=== PATIENT | male | born 1965 | race American Indian/Alaskan Native ===

== ENCOUNTER 2022-04-10 10:20 | Inpatient (IN) | payer SELFPAY ==
--- NOTE | 2022-04-10 11:06 | Emergency Department Report ---
Blank Doc - Documentation Documentation: 56-year-old male that presents with abdominal pain with radiation to flank times several days. 1- This is a initial triage assessment/medical screening only. Full assessment and work-up will be completed once the patient is in proper hospital gown, ED bed and in a private room setting. This initial assessment/diagnostic orders/clinical plan/ treatment(s) is/are subject to change based on pt's health status, clinical progression and re-assessment by fellow clinical providers in the ED. Further treatment and workup at subsequent clinical providers discretion. Patient/guardians urged not to elope from ED as their condition may be serious if not clinically assessed and managed. 2-labs 3-UA The patient was evaluated in the emergency department for symptoms described in the history of present illness. He/she was evaluated in the context of the global COVID-19 pandemic, which necessitated consideration that the patient might be at risk for infection with the virus that causes COVID-19. Institutional protocols and algorithms that pertain to the evaluation of patie nts at risk for COVID-19 are in a state of rapid change based on information released by regulatory bodies including the CDC and federal and state organizations. These policies and algorithms were followed during the patient's care in the emergency department. Please note that these policies, procedures and recommendations changed on a rapid basis.
[2022-04-10 12:40] LABS: Basophils % (Auto) 0.4 % (0.0-1.8); Eosinophils % (Auto) 0.1 % (0.0-4.3); Hematocrit 43.8 % (35.5-45.6); Hemoglobin 14.5 gm/dl (11.8-15.2); Lymphocytes # (Auto) 1.1 K/mm3 (1.2-5.4); Lymphocytes % (Auto) 11.8 % (13.4-35.0); Mean Corpuscular HGB Conc 33 % (32-34); Mean Corpuscular Volume 96 fl (84-94); Monocytes # (Auto) 1.1 K/mm3 (0.0-0.8); Platelet Count 385 K/mm3 (140-440); Red Blood Count 4.55 M/mm3 (3.65-5.03); Red Cell Distribution Width 13.2 % (13.2-15.2)
[2022-04-10 12:47] LABS: Alanine Aminotransferase 21 units/L (7-56); Albumin 3.5 g/dL (3.9-5); Blood Urea Nitrogen 11 mg/dL (9-20); Calcium 9.1 mg/dL (8.4-10.2); Hemolysis Index 3
[2022-04-10 12:48] LABS: BUN/Creatinine Ratio 16
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
[2022-04-10] MEDS ORDERED: MORPHINE 4 MG/1 ML INJ IV ONE (14:00)
[2022-04-10] MEDS ORDERED: PANTOPRAZOLE 40 MG INJ IV ONE (14:00)
[2022-04-10] MEDS ORDERED: ONDANSETRON 4 MG/2 ML INJ IV ONE (14:00)
[2022-04-10 14:38] LABS: INR 0.91 (0.87-1.13)
[2022-04-10 14:39] LABS: Partial Thromboplastin Time 49.8 Sec. (24.2-36.6)
--- NOTE | 2022-04-10 14:47 | XRay Report ---
CHEST 1 VIEW 04/10/2022 1:30 PM INDICATION / CLINICAL INFORMATION: LUQ pain. COMPARISON: None available. FINDINGS: SUPPORT DEVICES: None. HEART / MEDIASTINUM: Median sternotomy. LUNGS / PLEURA: No significant pulmonary or pleural abnormality. No pneumothorax. ADDITIONAL FINDINGS: No significant additional findings. IMPRESSION: 1. No acute findings. Signer Name: Maco Pack MD Signed: 04/10/2022 2:43 PM Workstation Name: [id number]
--- NOTE | 2022-04-10 16:43 | Cat Scan Report ---
CTA CHEST WITH CONTRAST INDICATION / CLINICAL INFORMATION: chest pain with elevated d-dimer. TECHNIQUE: Axial CT images were obtained through the chest after injection of IV contrast. 3 plane ND P and/or 3D reconstructions were produced. All CT scans at this location are performed using CT dose reduction for ALARA by means of automated exposure control. COMPARISON: None available. FINDINGS: PULMONARY EMBOLUS: None. Septic pulmonary emboli detailed below. THORACIC AORTA: No significant abnormality. HEART: No significant abnormality. CORONARY ARTERY CALCIFICATION: Present -- Mild. MEDIASTINUM / TAUL: Diffuse esophageal wall thickening. PLEURA: No pleural effusion. No pneumothorax. LUNGS: Peripheral based areas of nodular consolidation scattered throughout both lungs with feeding v essels. Upper lobe emphysema. ADDITIONAL FINDINGS: Multiple borderline enlarged axillary lymph nodes. Median sternotomy. UPPER ABDOMEN: Please see separately dictated CT abdomen and pelvis. SKELETAL STRUCTURES: No significant osseous abnormality. IMPRESSION: 1. Bilateral septic pulmonary emboli. 2. Diffuse esophageal wall thickening, which may be related to esophagitis. Signer Name: Maco Pack MD Signed: 04/10/2022 4:38 PM Workstation Name: [email or web address]
--- NOTE | 2022-04-10 16:51 | Cat Scan Report ---
CT ABDOMEN AND PELVIS WITH CONTRAST INDICATION / CLINICAL INFORMATION: chest pain with elevated d-dimer. Abdominal pain with concern for pancreatitis TECHNIQUE: Axial CT images were obtained through the abdomen and pelvis after IV contrast. All CT sc ans at this location are performed using CT dose reduction for ALARA by means of automated exposure c ontrol. COMPARISON: None available. FINDINGS: LOWER CHEST: Please see separately dictated CT chest LIVER: No significant abnormality. GALLBLADDER: No significant abnormality. BILE DUCTS: No significant abnormality. PANCREAS: No significant abnormality. SPLEEN: No significant abnormality. ADRENALS: No significant abnormality. RIGHT KIDNEY / URETER: No significant abnormality. LEFT KIDNEY / URETER: No significant abnormality. STOMACH / SMALL BOWEL: No significant abnormality. COLON: No significant abnormality. APPENDIX: Not visualized. PERITONEUM: No free fluid. No free air. No fluid collection. LYMPH NODES: Prominent but nonenlarged inguinal lymph nodes. AORTA / ARTERIES: No significant abnormality. IVC / VEINS: No significant abnormality. URINARY BLADDER: Bladder wall thickening. REPRODUCTIVE ORGANS: No significant abnormality. ADDITIONAL FINDINGS: None. SKELETAL SYSTEM: Chronic deformity of the left femur and right iliac bone. IMPRESSION: 1. Mild urinary bladder wall thickening, which can be seen with cystitis. 2. No evidence of pancreatitis. Signer Name: Maco Pack MD Signed: 04/10/2022 4:47 PM Workstation Name: [id number]
[2022-04-10 16:54] LABS: Mucus,Urine FEW /HPF
[2022-04-10 17:02] LABS: Color,Urine Yellow (Yellow)
[2022-04-10] MEDS ORDERED: HYDROmorphone 1 MG/1 ML INJ IV ONE (17:49)
--- NOTE | 2022-04-10 21:48 | History and Physical Report ---
History of Present Illness Date of examination: 04/10/22 Date of admission: 04/10/2022 Chief complaint: Left-sided chest pain History of present illness: 56-year-old -[place] male with history of hypertension comes in for left infra axillary chest pain going on for the last 2 weeks worsens with deep inspiration. Pain is about 8 on a scale of 1-10 and intermittent in nature. No shortness of breath no diaphoresis. No fever or chills. Patient has a complic ated history of osteomyelitis 20 years ago with bone irrigation antibiotic beads and left femur resection of 2 inches with Reunion. But no further complications since 20 years. No fever or chills today. Shortness of breath on exertion present. - Past Medical History --HIV: Yes Complicated history of osteomyelitis - Surgical History --L femur bone irrigation and bone resection for osteomyelitis --Patient states that he is 2 inches short on the left lower extremity -Family history --Htn -Social history --smokes about 1/3 pack a day Review of Systems ROS: Constitutional no weight loss or weight gain no fever or chills HEENT no sore throat no post nasal drip no diplopia Neck no neck stiffness no lymph gland enlargement Chest and lungs left-sided chest pain more on inspiration CVS no chest pain no diaphoresis no palpitations GI no nausea no vomiting no diarrhea Genitourinary system no dysuria no flank pain Musculoskeletal system no muscle pains no joint pains STRAW [employer] no syncope no seizures Skin no rash no itching Psychiatric no depression no homicidal or suicidal tendencies Hematologic no lymphedema or bruising Endocrine no polydipsia no polyuria no cold intolerance no heat intolerance Medications and Allergies Allergies Allergy/AdvReac Type Severity Reaction Status Date / Time ciprofloxacin [From Cipro] Allergy Hives Verified 04/10/22 10:32 Exam - Constitutional Vitals: Temp Pulse Resp BP Pulse Ox 98.3 F 69 12 139/80 98 04/10/22 14:14 04/10/22 16:20 04/10/22 16:20 04/10/22 21:15 04/10/22 21:15 General appearance: Present: no acute distress, well-nourished - EENT Eyes: Present: PERRL ENT: hearing intact, clear oral mucosa - Neck Neck: Present: supple, normal ROM - Respiratory Respiratory effort: normal Respiratory: bilateral: CTA - Cardiovascular Heart rate: 78 Rhythm: regular Heart Sounds: Present: S1 & S2. Absent: rub, click - Extremities Extremities: pulses symmetrical, No edema Peripheral Pulses: within normal limits - Abdominal General gastrointestinal: Present: soft, non-tender, non-distended, normal bowel sounds Male genitourinary: Present: normal - Integumentary Integumentary: Present: clear, warm, dry - Musculoskeletal Musculoskeletal: gait normal, strength equal bilaterally - Psychiatric Psychiatric: appropriate mood/affect, intact judgment & insight - Neurologic Neurologic: CNII-XII intact, moves all extremities - Allied Health Allied health notes reviewed: nursing, case management HEART Score - HEART Score History: Slightly suspicious Age: 45-65 Risk factors: 1-2 risk factors Troponin: Troponin T < 0.010 ng/mL (0.00-0.029) 04/10/22 14:06 Troponin: < normal limit - Critical Actions Critical Actions: 0-3 pts:0.9-1.7%risk of adverse cardiac event.Candidate for discharge Results - Labs CBC & Chem 7: 04/10/22 11:09 04/10/22 11:09 Labs: Laboratory Last Values WBC 9.5 K/mm3 (4.5-11.0) 04/10/22 11:09 RBC 4.55 M/mm3 (3.65-5.03) 04/10/22 11:09 Hgb 14.5 gm/dl (11.8-15.2) 04/10/22 11:09 Hct 43.8 % (35.5-45.6) 04/10/22 11:09 MCV 96 fl (84-94) H 04/10/22 11:09 MCH 32 pg (28-32) 04/10/22 11:09 MCHC 33 % (32-34) 04/10/22 11:09 RDW 13.2 % (13.2-15.2) 04/10/22 11:09 Plt Count 385 K/mm3 (140-440) 04/10/22 11:09 Lymph % (Auto) 11.8 % (13.4-35.0) L 04/10/22 11:09 [place] % (Auto) 11.0 % (0.0-7.3) H 04/10/22 11:09 Eos % (Auto) 0.1 % (0.0-4.3) 04/10/22 11:09 Baso % (Auto) 0.4 % (0.0-1.8) 04/10/22 11:09 Lymph # (Auto) 1.1 K/mm3 (1.2-5.4) L 04/10/22 11:09 [place] # (Auto) 1.1 K/mm3 (0.0-0.8) H 04/10/22 11:09 Eos # (Auto) 0.0 K/mm3 (0.0-0.4) 04/10/22 11:09 Baso # (Auto) 0.0 K/mm3 (0.0-0.1) 04/10/22 11:09 Seg Neutrophils % 76.7 % (40.0-70.0) H 04/10/22 11:09 Seg Neutrophils # 7.3 K/mm3 (1.8-7.7) 04/10/22 11:09 PT 13.2 Sec. (12.2-14.9) 04/10/22 14:06 INR 0.91 (0.87-1.13) 04/10/22 14:06 APTT 49.8 Sec. (24.2-36.6) H 04/10/22 14:06 D-Dimer 1147.05 ng/mlDDU (0-234) H 04/10/22 14:06 Sodium 136 mmol/L (137-145) L 04/10/22 11:09 Potassium 4.6 mmol/L (3.6-5.0) 04/10/22 11:09 Chloride 97.5 mmol/L (98-107) L 04/10/22 11:09 Carbon Dioxide 30 mmol/L (22-30) 04/10/22 11:09 Anion Gap 13 mmol/L 04/10/22 11:09 BUN 11 mg/dL (9-20) 04/10/22 11:09 Creatinine 0.7 mg/dL (0.8-1.3) L 04/10/22 11:09 Estimated GFR > 60 ml/min 04/10/22 11:09 BUN/Creatinine Ratio 16 % 04/10/22 11:09 Glucose 106 mg/dL (75-100) H 04/10/22 11:09 Calcium 9.1 mg/dL (8.4-10.2) 04/10/22 11:09 Total Bilirubin 0.70 mg/dL (0.1-1.2) 04/10/22 11:09 AST 28 units/L (5-40) 04/10/22 11:09 ALT 21 units/L (7-56) 04/10/22 11:09 Alkaline Phosphatase 112 units/L (35-129) 04/10/22 11:09 Troponin T < 0.010 ng/mL (0.00-0.029) 04/10/22 14:06 NT-Pro-B Natriuret Pep 160.6 pg/mL (0-900) 04/10/22 14:06 Total Protein 7.8 g/dL (6.3-8.2) 04/10/22 11:09 Albumin 3.5 g/dL (3.9-5) L 04/10/22 11:09 Albumin/Globulin Ratio 0.8 % 04/10/22 11:09 Amylase 47 units/L (27-131) 04/10/22 Unknown Lipase 16 units/L (13-60) 04/10/22 11:09 Urine Color Yellow (Yellow) 04/10/22 15:29 Urine Turbidity Slightly cloudy (Clear) 04/10/22 15:29 Specific [place] (Man) 1.010 (1.003-1.030) 04/10/22 15:29 Ur Protein (Man) 1+ mg/dL (Negative) 04/10/22 15:29 Ur Ketones (Man) Negative (Negative) 04/10/22 15:29 Urine Bilirubin (Man) Negative (Negative) 04/10/22 15:29 Urine WBC (Auto) 2.0 /HPF (0.0-6.0) 04/10/22 15:29 Urine RBC (Auto) 1.0 /HPF (0.0-6.0) 04/10/22 15:29 Urine RBC (Manual) Negative (Negative) 04/10/22 15:29 Urine Mucus Few /HPF 04/10/22 15:29 Short CBC 04/10/22 04/11/22 Range/Units 11:09 06:13 WBC 9.5 12.8 H (4.5-11.0) K/mm3 Hgb 14.5 14.0 (11.8-15.2) gm/dl Hct 43.8 41.9 (35.5-45.6) % Plt Count 385 356 (140-440) K/mm3 BMP 04/10/22 11:09 Sodium 136 L Potassium 4.6 Chloride 97.5 L Carbon Dioxide 30 BUN 11 Creatinine 0.7 L Glucose 106 H Calcium 9.1 Cardiac Enzymes 04/10/22 Range/Units 14:06 Troponin T < 0.010 (0.00-0.029) ng/mL Liver Function 04/10/22 Range/Units 11:09 Total Bilirubin 0.70 (0.1-1.2) mg/dL AST 28 (5-40) units/L ALT 21 (7-56) units/L Alkaline Phosphatase 112 (35-129) units/L Albumin 3.5 L (3.9-5) g/dL Urine 04/10/22 Range/Units 15:29 Urine Color Yellow (Yellow) - Imaging and Cardiology EKG: report reviewed (Sinus rhythm no acute ST-T wave changes) Imaging and Cardiology: CT angiogram Bilateral septic pulmonary emboli Diffuse distributive orthopedic which may be related to esophagitis Abdomen and pelvis CAT scan Mild urinary bladder wall thickening which can be seen with cystitis No evidence of pancreatitis Chest x-ray No acute findings Assessment and Plan Advance Directives: Yes (Full code) VTE prophylaxis?: Chemical Plan of care discussed with patient/family: Yes - Patient Problems (1) SIRS (systemic inflammatory response syndrome) Current Visit: Yes Status: Acute Plan to address problem: Elevated inflammation markers like D-dimer Septic emboli (2) Acute pulmonary embolism Current Visit: Yes Status: Acute Qualifiers: Pulmonary embolism type: septic Plan to address problem: Patient has septic emboli as per radiology Patient initiated on IV cefepime and IV vancomycin Patient has complicated history of osteomyelitis 20 years ago May not be the causation factor No focus of infection found Echocardiogram to rule out bacterial endocarditis LUNA if necessary ID consult and cardiology consult requested Patient also initiated on IV heparin as per protocol with standard intensity (3) Septic pulmonary embolism Current Visit: Yes Status: Acute Qualifiers: Chronicity: acute Acute cor pulmonale presence: without acute cor pulmonale Qualified Code(s): I26.90 - Septic pulmonary embolism without acute cor pulmo nale Plan to address problem: Etiology unclear Patient has complicated history of osteomyelitis 20 years ago with a bone irrigation and antibiotic beads and femur resection of 2 inches secondary to osteomyelitis. Left femur. Echocardiogram for possible bacterial. Endocarditis LUNA if necessary Patient initiated on IV cefepime and vancomycin ID consult and cardiology consult requested (4) Hypertension Current Visit: Yes Status: Chronic Qualifiers: Hypertension type: primary hypertension Qualified Code(s): I10 - Essential (primary) hypertension Plan to address problem: History of hypertension Not on any medications Will trend the blood pressure and where she is on losartan if necessary (5) Pleuritis Current Visit: Yes Status: Acute Plan to address problem: Left-sided chest pain probably secondary to pulmonary infarction Serial troponins Ischemic cardiac injury unlikely (6) HIV disease Current Visit: Yes Status: Chronic Plan to address problem: Not on any antiretrovirals (7) DVT prophylaxis Current Visit: Yes Status: Acute Plan to address problem: Patient on IV heparin and GI prophylaxis (8) Advance care planning Current Visit: Yes Status: Acute Plan to address problem: Disease education conducted, care plan discussed, diagnosis discussed and prognosis discussed. Patient acknowledged understanding with care plan. +30 minutes.
[2022-04-10] MEDS ORDERED: HYDROmorphone 0.5 MG/0.5 ML INJ IV PRN (21:52)
[2022-04-10] MEDS ORDERED: ONDANSETRON 4 MG/2 ML INJ IV PRN (21:52)
[2022-04-10] MEDS ORDERED: METOCLOPRAMIDE 10 MG/2 ML INJ IV PRN (21:52)
[2022-04-10] MEDS ORDERED: ACETAMINOPHEN 325 MG TAB PO PRN (21:52)
[2022-04-10] MEDS ORDERED: HEPARIN 10,000 UNITS/10 ML VIAL IV PRN (22:05)
[2022-04-10] MEDS: FAMOTIDINE 20 MG/2 ML INJ IV SCH (22:26)
[2022-04-10] MEDS: HEPARIN/ 0.45% NACL DRIP 25,000 UNIT/500 ML BAG IV SCH (22:57)
[2022-04-10] MEDS: CEFEPIME/NS 2 GM/100 ML 2 GM/100 ML BAG IV SCH (22:57)
[2022-04-10] MEDS ORDERED: VANCOMYCIN PHARMACY TO DOSE IV SCH (23:00)
[2022-04-10] MEDS ORDERED: HEPARIN/ 0.45% NACL DRIP 25,000 UNIT/500 ML BAG IV SCH (23:00)
[2022-04-10] MEDS: MORPHINE 2 MG/1 ML INJ IV PRN (23:15)
[2022-04-10] MEDS ORDERED: VANCOMYCIN 1,500 MG in SODIUM CHLORIDE 0.9% 500 ML 500 ML IV ONE (23:30)
[2022-04-11 06:43] LABS: Basophils # (Auto) 0.1 K/mm3 (0.0-0.1); Basophils % (Auto) 0.4 % (0.0-1.8); Hematocrit 41.9 % (35.5-45.6); Lymphocytes # (Auto) 0.8 K/mm3 (1.2-5.4); Lymphocytes % (Auto) 6.5 % (13.4-35.0); Mean Corpuscular HGB Conc 33 % (32-34); Mean Corpuscular Volume 95 fl (84-94); Monocytes % (Auto) 7.9 % (0.0-7.3); Platelet Count 356 K/mm3 (140-440); Red Blood Count 4.43 M/mm3 (3.65-5.03); Red Cell Distribution Width 13.2 % (13.2-15.2)
[2022-04-11 06:56] LABS: Alanine Aminotransferase 17 units/L (7-56); Albumin 2.9 g/dL (3.9-5); Blood Urea Nitrogen 12 mg/dL (9-20); Calcium 8.7 mg/dL (8.4-10.2); Hemolysis Index 32
[2022-04-11 07:04] LABS: BUN/Creatinine Ratio 20
--- NOTE | 2022-04-11 08:36 | Progress Note ---
Assessment and Plan Assessment and plan: #Acute pulmonary emboli #suspected septic emboli #SIRS (systemic inflammatory response syndrome) without organ dysfunction -septic emboli seen on CT of the chest -TTE noted, no vegetations, clots seen; patient may require LUNA -will continue vancomycin, cefepime and heparin drip -ID consulted ordered, assistance appreciated #Elevated D-dimer -likely secondary to PEs #Hypertension -History of hypertension, does not take medications at home -will continue to monitor to see if antihypertensives may be needed prior to discharge -goal SBP <160 while inpatient #HIV disease -Not on any antiretrovirals -will need ID follow up outpatient #Tobacco abuse #Smoking cessation -patient smokes about 4 cigarettes per day -Smoking cessation counseling, supportive care, behavior change counseling, +15 minutes. -Patient declines nicotine patch at this time #Moderate protein malnutrition -albumin 2.9 -nutrition consult #Advanced care planning -Disease education conducted, care plan discussed, diagnosis discussed and prognosis discussed. Patient acknowledged understanding with care plan. +30 minutes. History Interval history: No acute events overnight. Patient reports improvement in shortness of breath and is not experiencing pain at this time. We discussed current care plan and pending ID consultation. Patient agreeable. Hospitalist Physical - Physical exam Narrative exam: GENERAL: Thin male. In no acute distress. HEENT: Normocephalic. Atraumatic. NECK: Supple. CHEST/LUNGS: CTAB on room air HEART/CARDIOVASCULAR: RRR. No murmur, rubs or gallops appreciated. ABDOMEN: +BS. NT/ND. SKIN: No rashes noted. NEURO: No focal motor deficit. Follows all commands. MUSCULOSKELETAL: No joint effusion EXTREMITIES: No cyanosis, clubbing or edema. PSYCH: Cooperative. - Constitutional Vitals: Temp Pulse Resp BP Pulse Ox 98 F 66 20 177/90 98 04/11/22 03:15 04/11/22 03:15 04/11/22 03:15 04/11/22 03:15 04/11/22 03:21 General appearance: Present: no acute distress, well-nourished HEART Score - HEART Score Age: 45-65 Risk factors: 1-2 risk factors Troponin: Troponin T < 0.010 ng/mL (0.00-0.029) 04/10/22 14:06 Troponin: < normal limit - Critical Actions Critical Actions: 0-3 pts:0.9-1.7%risk of adverse cardiac event.Candidate for discharge Results - Labs CBC & Chem 7: 04/11/22 06:13 04/11/22 06:13 Labs: Laboratory Last Values WBC 12.8 K/mm3 (4.5-11.0) H 04/11/22 06:13 RBC 4.43 M/mm3 (3.65-5.03) 04/11/22 06:13 Hgb 14.0 gm/dl (11.8-15.2) 04/11/22 06:13 Hct 41.9 % (35.5-45.6) 04/11/22 06:13 MCV 95 fl (84-94) H 04/11/22 06:13 MCH 32 pg (28-32) 04/11/22 06:13 MCHC 33 % (32-34) 04/11/22 06:13 RDW 13.2 % (13.2-15.2) 04/11/22 06:13 Plt Count 356 K/mm3 (140-440) 04/11/22 06:13 Lymph % (Auto) 6.5 % (13.4-35.0) L 04/11/22 06:13 [place] % (Auto) 7.9 % (0.0-7.3) H 04/11/22 06:13 Eos % (Auto) 0.0 % (0.0-4.3) 04/11/22 06:13 Baso % (Auto) 0.4 % (0.0-1.8) 04/11/22 06:13 Lymph # (Auto) 0.8 K/mm3 (1.2-5.4) L 04/11/22 06:13 [place] # (Auto) 1.0 K/mm3 (0.0-0.8) H 04/11/22 06:13 Eos # (Auto) 0.0 K/mm3 (0.0-0.4) 04/11/22 06:13 Baso # (Auto) 0.1 K/mm3 (0.0-0.1) 04/11/22 06:13 Seg Neutrophils % 85.2 % (40.0-70.0) H 04/11/22 06:13 Seg Neutrophils # 10.9 K/mm3 (1.8-7.7) H 04/11/22 06:13 PT 13.2 Sec. (12.2-14.9) 04/10/22 14:06 INR 0.91 (0.87-1.13) 04/10/22 14:06 APTT 49.8 Sec. (24.2-36.6) H 04/10/22 14:06 D-Dimer 1147.05 ng/mlDDU (0-234) H 04/10/22 14:06 Heparin Anti-Xa Level < 0.10 U.I./ml (0.3-0.7) L 04/11/22 06:13 Sodium 130 mmol/L (137-145) L 04/11/22 06:13 Potassium 4.7 mmol/L (3.6-5.0) 04/11/22 06:13 Chloride 96.6 mmol/L (98-107) L 04/11/22 06:13 Carbon Dioxide 26 mmol/L (22-30) 04/11/22 06:13 Anion Gap 12 mmol/L 04/11/22 06:13 BUN 12 mg/dL (9-20) 04/11/22 06:13 Creatinine 0.6 mg/dL (0.8-1.3) L 04/11/22 06:13 Estimated GFR > 60 ml/min 04/11/22 06:13 BUN/Creatinine Ratio 20 % 04/11/22 06:13 Glucose 145 mg/dL (75-100) H 04/11/22 06:13 POC Glucose 146 mg/dL (70-105) H 04/11/22 05:12 Calcium 8.7 mg/dL (8.4-10.2) 04/11/22 06:13 Total Bilirubin 0.80 mg/dL (0.1-1.2) 04/11/22 06:13 AST 26 units/L (5-40) 04/11/22 06:13 ALT 17 units/L (7-56) 04/11/22 06:13 Alkaline Phosphatase 112 units/L (35-129) 04/11/22 06:13 Troponin T < 0.010 ng/mL (0.00-0.029) 04/10/22 14:06 NT-Pro-B Natriuret Pep 160.6 pg/mL (0-900) 04/10/22 14:06 Total Protein 7.4 g/dL (6.3-8.2) 04/11/22 06:13 Albumin 2.9 g/dL (3.9-5) L 04/11/22 06:13 Albumin/Globulin Ratio 0.6 % 04/11/22 06:13 Amylase 47 units/L (27-131) 04/10/22 Unknown Lipase 16 units/L (13-60) 04/10/22 11:09 Urine Color Yellow (Yellow) 04/10/22 15:29 Urine Turbidity Slightly cloudy (Clear) 04/10/22 15:29 Specific Scott (Man) 1.010 (1.003-1.030) 04/10/22 15:29 Ur Protein (Man) 1+ mg/dL (Negative) 04/10/22 15:29 Ur Ketones (Man) Negative (Negative) 04/10/22 15:29 Urine Bilirubin (Man) Negative (Negative) 04/10/22 15:29 Urine WBC (Auto) 2.0 /HPF (0.0-6.0) 04/10/22 15:29 Urine RBC (Auto) 1.0 /HPF (0.0-6.0) 04/10/22 15:29 Urine RBC (Manual) Negative (Negative) 04/10/22 15:29 Urine Mucus Few /HPF 04/10/22 15:29 Jeong/IV: Voiding Method Urinal Active Medications - Current Medications Current Medications: Generic Name Dose Route Start Last Admin Trade Name Freq PRN Reason Stop Dose Admin Acetaminophen 650 mg 04/10/22 21:52 Acetaminophen 325 Mg Tab PO Q4H PRN Pain MILD(1-3)/Fever >100.5/MORRIS Famotidine 20 mg 04/10/22 22:00 04/10/22 22:26 Famotidine 20 Mg/2 Ml Inj IV 20 mg BID NIRU Administration Heparin Sodium (Porcine) 2,700 unit 04/10/22 22:05 Heparin 10,000 Units/10 Ml Vial 40 unit/kg (2700 unit) IV Q6H PRN Anti-Xa Assay < 0.1 units/ml Hydromorphone HCl 0.5 mg 04/10/22 21:52 Hydromorphone 0.5 Mg/0.5 Ml Inj IV Q3H PRN Pain , Severe (7-10) Sodium Chloride 1,000 mls @ 75 mls/hr 04/10/22 22:00 Nacl 0.9% 1000 Ml IV DIRECT NIRU Cefepime HCl 2 gm in 100 mls @ 200 mls/hr 04/10/22 23:00 04/10/22 22:57 Cefepime/Ns 2 Gm/100 Ml IV 200 mls/hr Q8HR NIRU Administration Protocol Heparin Sodium/Sodium Chloride 25,000 unit in 500 mls @ 20 mls/hr 04/10/22 23:00 04/10/22 22:57 Heparin/ 0.45% Nacl-25,000 Unit/500 Ml IV 1,000 units/hr TITR NIRU 20 mls/hr Administration Protocol 1,000 UNITS/HR Vancomycin HCl 1 gm in 250 mls @ 250 mls/hr 04/11/22 12:00 Vancomycin/Ns 1 Gm/250 Ml IV Q12H NIRU Metoclopramide HCl 10 mg 04/10/22 21:52 Metoclopramide 10 Mg/2 Ml Inj IV Q6H PRN Nausea And Vomiting Morphine Sulfate 2 mg 04/10/22 21:52 04/10/22 23:15 Morphine 2 Mg/1 Ml Inj IV 2 mg Q4H PRN Administration Pain, Moderate (4-6) Ondansetron HCl 4 mg 04/10/22 21:52 Ondansetron 4 Mg/2 Ml Inj IV Q8H PRN Nausea And Vomiting Sodium Chloride 10 ml 04/10/22 22:00 04/10/22 22:55 Sodium Chloride 0.9% 10 Ml Flush Syringe IV 10 ml BID NIRU Administration Sodium Chloride 10 ml 04/10/22 21:52 Sodium Chloride 0.9% 10 Ml Flush Syringe IV PRN PRN LINE FLUSH
[2022-04-11] MEDS: FAMOTIDINE 20 MG/2 ML INJ IV SCH ×2 (09:52→21:19)
[2022-04-11] MEDS: MORPHINE 2 MG/1 ML INJ IV PRN ×2 (09:55→20:44)
[2022-04-11] MEDS: VANCOMYCIN/NS 1 GM/250 ML 1 GM/250 ML BAG IV SCH ×2 (13:00→23:02)
[2022-04-11] MEDS: CEFEPIME/NS 2 GM/100 ML 2 GM/100 ML BAG IV SCH ×3 (15:00→21:18)
--- NOTE | 2022-04-11 20:38 | Consultation ---
History of Present Illness - Reason for Consult Consult date: 04/11/22 - History of Present Illness 56-year-old man past medical history hypertension, HIV presented to hospital complaining of chest pain which began 2 days prior to admission and was worse with deep inspiration denies shortness of breath, denies fevers, chills. Reportedly had a history of osteomyelitis 20 years previously with bone irrigation and antibiotic beads. This was at the left femur which required resection and reunion. Found to have septic emboli. Afebrile since admission with a white count 12.8. Normal renal function. Blood cultures no growth so far. Currently on vancomycin, cefepime. Imaging personally reviewed: Chest CTA: Bilateral septic pulmonary emboli with diffuse esophageal wall thickening which may be related to esophagitis TTE: No evidence of vegetation. Review of Systems: Bold if positive, otherwise negative General: fevers, chills, rigors HEENT: visual disturbance, diplopia, eye pain Respiratory: cough, sputum, hemoptysis, shortness of breath Cardiovascular: chest pain, syncope Gastrointestinal: nausea, vomiting, diarrhea, abdominal pain Genitourinary: dysuria, hematuria, flank pain Musculoskeletal: neck pain, back pain, joint pain, edema Neurologic: headaches, seizures Hematologic: easy bruising or bleeding Endocrine: night sweats, acute weight loss Skin: rash, jaundice, redness Psychiatric: suicidal, homicidal ideation Past History Past Surgical History: Other (Partial femur resection) Social history: denies: smoking Family history: diabetes Medications and Allergies Allergies Allergy/AdvReac Type Severity Reaction Status Date / Time ciprofloxacin [From Cipro] Allergy Hives Verified 04/11/22 14:39 Home Medications Medication Instructions Recorded Confirmed Last Taken Type No Known Home Medications [No 04/11/22 04/11/22 Unknown History Reported Home Medications] Active Meds: Active Medications Acetaminophen (Acetaminophen 325 Mg Tab) 650 mg PO Q4H PRN PRN Reason: Pain MILD(1-3)/Fever >100.5/MORRIS Famotidine (Famotidine 20 Mg/2 Ml Inj) 20 mg IV BID NIRU Last Admin: 04/11/22 09:52 Dose: 20 mg Heparin Sodium (Porcine) (Heparin 10,000 Units/10 Ml Vial) 2,700 unit 40 unit/kg (2700 unit) IV Q6H PRN PRN Reason: Anti-Xa Assay < 0.1 units/ml Hydromorphone HCl (Hydromorphone 0.5 Mg/0.5 Ml Inj) 0.5 mg IV Q3H PRN PRN Reason: Pain , Severe (7-10) Sodium Chloride (Nacl 0.9% 1000 Ml) 1,000 mls @ 75 mls/hr IV DIRECT NIRU Cefepime HCl (Cefepime/Ns 2 Gm/100 Ml) 2 gm in 100 mls @ 200 mls/hr IV Q8HR [facility]; Protocol Last Admin: 04/11/22 15:00 Dose: 200 mls/hr Heparin Sodium/Sodium Chloride (Heparin/ 0.45% Nacl-25,000 Unit/500 Ml) 25,000 unit in 500 mls @ 20 mls/hr IV TITR NIRU; Protocol Last Admin: 04/10/22 22:57 Dose: 1,000 units/hr, 20 mls/hr Vancomycin HCl (Vancomycin/Ns 1 Gm/250 Ml) 1 gm in 250 mls @ 250 mls/hr IV Q12H [facility] Last Admin: 04/11/22 13:00 Dose: 250 mls/hr Metoclopramide HCl (Metoclopramide 10 Mg/2 Ml Inj) 10 mg IV Q6H PRN PRN Reason: Nausea And Vomiting Morphine Sulfate (Morphine 2 Mg/1 Ml Inj) 2 mg IV Q4H PRN PRN Reason: Pain, Moderate (4-6) Last Admin: 04/11/22 09:55 Dose: 2 mg Ondansetron HCl (Ondansetron 4 Mg/2 Ml Inj) 4 mg IV Q8H PRN PRN Reason: Nausea And Vomiting Sodium Chloride (Sodium Chloride 0.9% 10 Ml Flush Syringe) 10 ml IV BID [facility] Last Admin: 04/11/22 09:53 Dose: 10 ml Sodium Chloride (Sodium Chloride 0.9% 10 Ml Flush Syringe) 10 ml IV PRN PRN PRN Reason: LINE FLUSH Physical Examination - Physical Exam Narrative exam: Physical Exam: Constitutional: Alert, cooperative. No acute distress Head, Ears, Nose: Normocephalic, atraumatic. External ears, nose normal Eyes: Conjunctivae/corneas clear. No icterus. No ptosis. Neck: Supple, no meningeal signs Oral: dentition fair, no thrush Cardiovascular: S1, S2 normal. Respiratory: Good air entry, clear to auscultation bilaterally GI: Soft, non-tender; bowel sounds normal. No peritoneal signs. Musculoskeletal: No pedal edema, no cyanosis. Skin: No rash or abscess Hem/Lymphatic: No palpable cervical or supraclavicular nodes. No lymphangitis Psych: Mood ok. Affect normal Neurological: Awake, alert, oriented. No gross abnormality - Constitutional Vitals: Vital Signs Temp Pulse Resp BP Pulse Ox 97.9 F 63 16 119/75 99 04/11/22 11:36 04/11/22 15:42 04/11/22 15:42 04/11/22 15:42 04/11/22 15:42 Temperature -Last 24 Hours Temperature 97.9 F Temperature 98.7 F Temperature 98 F Results - Labs CBC & Chem 7: 04/11/22 06:13 04/11/22 06:13 Labs: Abnormal lab results 04/11/22 04/11/22 04/11/22 Range/Units 05:12 06:13 06:13 WBC 12.8 H (4.5-11.0) K/mm3 MCV 95 H (84-94) fl Lymph % (Auto) 6.5 L (13.4-35.0) % [place] % (Auto) 7.9 H (0.0-7.3) % Lymph # (Auto) 0.8 L (1.2-5.4) K/mm3 [place] # (Auto) 1.0 H (0.0-0.8) K/mm3 Seg Neutrophils % 85.2 H (40.0-70.0) % Seg Neutrophils # 10.9 H (1.8-7.7) K/mm3 Heparin Anti-Xa Level (0.3-0.7) U.I./ml Sodium 130 L (137-145) mmol/L Chloride 96.6 L (98-107) mmol/L Creatinine 0.6 L (0.8-1.3) mg/dL Glucose 145 H (75-100) mg/dL POC Glucose 146 H (70-105) mg/dL Albumin 2.9 L (3.9-5) g/dL 04/11/22 04/11/22 Range/Units 06:13 Unknown WBC (4.5-11.0) K/mm3 MCV (84-94) fl Lymph % (Auto) (13.4-35.0) % [place] % (Auto) (0.0-7.3) % Lymph # (Auto) (1.2-5.4) K/mm3 [place] # (Auto) (0.0-0.8) K/mm3 Seg Neutrophils % (40.0-70.0) % Seg Neutrophils # (1.8-7.7) K/mm3 Heparin Anti-Xa Level < 0.10 L < 0.10 L (0.3-0.7) U.I./ml Sodium (137-145) mmol/L Chloride (98-107) mmol/L Creatinine (0.8-1.3) mg/dL Glucose (75-100) mg/dL POC Glucose (70-105) mg/dL Albumin (3.9-5) g/dL Assessment and Plan Cultures: Blood culture no growth so far A/P: 56-year-old man past medical history hypertension, HIV now with: #Septic pulmonary emboli: No evidence of endocarditis on TTE. Blood cultures negative, does not relate any history of recent febrile illnesses. Possible culture-negative endocarditis. #HIV: Not on ART Recs: -Continue vancomycin, cefepime for now -Follow blood cultures -Recommend LUNA given reported history of septic emboli -For his HIV he will have to establish care with [facility] or [facility] for free care. Thank you for the consult, we will continue to follow. MD [facility] ([facility] O: [phone] F: [phone]
[2022-04-11] MEDS: SODIUM CHLORIDE 0.9% 1000 ML 1,000 ML IV SCH (21:19)
[2022-04-12] MEDS: HEPARIN/ 0.45% NACL DRIP 25,000 UNIT/500 ML BAG IV SCH ×2 (00:43→18:11)
[2022-04-12] MEDS: MORPHINE 2 MG/1 ML INJ IV PRN ×5 (03:26→21:38)
[2022-04-12] MEDS: CEFEPIME/NS 2 GM/100 ML 2 GM/100 ML BAG IV SCH ×3 (05:17→21:37)
[2022-04-12] MEDS: FAMOTIDINE 20 MG/2 ML INJ IV SCH ×2 (09:07→21:37)
[2022-04-12 10:30] LABS: Basophils # (Auto) 0.1 K/mm3 (0.0-0.1); Basophils % (Auto) 1.5 % (0.0-1.8); Eosinophils % (Auto) 0.2 % (0.0-4.3); Hematocrit 39.5 % (35.5-45.6); Hemoglobin 13.4 gm/dl (11.8-15.2); Lymphocytes # (Auto) 0.9 K/mm3 (1.2-5.4); Lymphocytes % (Auto) 12.4 % (13.4-35.0); Mean Corpuscular HGB Conc 34 % (32-34); Mean Corpuscular Volume 95 fl (84-94); Monocytes # (Auto) 0.9 K/mm3 (0.0-0.8); Monocytes % (Auto) 12.2 % (0.0-7.3); Platelet Count 346 K/mm3 (140-440); Red Blood Count 4.15 M/mm3 (3.65-5.03); Red Cell Distribution Width 12.9 % (13.2-15.2)
[2022-04-12 11:00] LABS: Blood Urea Nitrogen 9 mg/dL (9-20); Calcium 8.5 mg/dL (8.4-10.2); Hemolysis Index 1
[2022-04-12 11:13] LABS: BUN/Creatinine Ratio 15
--- NOTE | 2022-04-12 11:59 | Consultation ---
History of Present Illness Consult date: 04/12/22 Requesting physician: ZACH MOSER Consult reason: other (LUNA to r/o septic emboli) History of present illness: Patient is a 56-year-old male with a past medical history of HIV, hypertension, osteomyelitis who presented to the ED with a complaint of chest pain x2 weeks. Patient reported that he thought the pain was from indigestion however reports pain has gotten worse and is worse with inspiration and palpation. He denies shortness of breath, diaphoresis, crushing or squeezing chest pain. Denies fevers and chills. In the ED patient was found to have elevated white count and CTA chest showed bilateral septic pulmonary emboli with diffuse esophageal wall thickening. Patient is previously unknown to our practice. Cardiology is consulted for LUNA. Past History Past Medical History: other (see HPI) Past Surgical History: Other (Partial femur resection) Social history: smoking Family history: diabetes Medications and Allergies Allergies Allergy/AdvReac Type Severity Reaction Status Date / Time ciprofloxacin [From Cipro] Allergy Hives Verified 04/11/22 14:39 Home Medications Medication Instructions Recorded Confirmed Last Taken Type No Known Home Medications [No 04/11/22 04/11/22 Unknown History Reported Home Medications] Active Meds: Active Medications Acetaminophen (Acetaminophen 325 Mg Tab) 650 mg PO Q4H PRN PRN Reason: Pain MILD(1-3)/Fever >100.5/MORRIS Famotidine (Famotidine 20 Mg/2 Ml Inj) 20 mg IV BID NIRU Last Admin: 04/12/22 09:07 Dose: 20 mg Heparin Sodium (Porcine) (Heparin 10,000 Units/10 Ml Vial) 2,700 unit 40 unit/kg (2700 unit) IV Q6H PRN PRN Reason: Anti-Xa Assay < 0.1 units/ml Last Admin: 04/12/22 00:39 Dose: 2,700 unit Hydromorphone HCl (Hydromorphone 0.5 Mg/0.5 Ml Inj) 0.5 mg IV Q3H PRN PRN Reason: Pain , Severe (7-10) Sodium Chloride (Nacl 0.9% 1000 Ml) 1,000 mls @ 75 mls/hr IV DIRECT NIRU Last Admin: 04/11/22 21:19 Dose: 75 mls/hr Cefepime HCl (Cefepime/Ns 2 Gm/100 Ml) 2 gm in 100 mls @ 200 mls/hr IV Q8HR [facility]; Protocol Last Admin: 04/12/22 05:17 Dose: 200 mls/hr Heparin Sodium/Sodium Chloride (Heparin/ 0.45% Nacl-25,000 Unit/500 Ml) 25,000 unit in 500 mls @ 20 mls/hr IV TITR [facility]; Protocol Last Titration: 04/12/22 11:22 Dose: 1,300 units/hr, 26 mls/hr Vancomycin HCl (Vancomycin/Ns 1 Gm/250 Ml) 1 gm in 250 mls @ 250 mls/hr IV Q12H NIRU Last Admin: 04/11/22 23:02 Dose: 250 mls/hr Metoclopramide HCl (Metoclopramide 10 Mg/2 Ml Inj) 10 mg IV Q6H PRN PRN Reason: Nausea And Vomiting Morphine Sulfate (Morphine 2 Mg/1 Ml Inj) 2 mg IV Q4H PRN PRN Reason: Pain, Moderate (4-6) Last Admin: 04/12/22 09:07 Dose: 2 mg Ondansetron HCl (Ondansetron 4 Mg/2 Ml Inj) 4 mg IV Q8H PRN PRN Reason: Nausea And Vomiting Sodium Chloride (Sodium Chloride 0.9% 10 Ml Flush Syringe) 10 ml IV BID [facility] Last Admin: 04/12/22 09:07 Dose: 10 ml Sodium Chloride (Sodium Chloride 0.9% 10 Ml Flush Syringe) 10 ml IV PRN PRN PRN Reason: LINE FLUSH Review of Systems Constitutional: no weight loss, no weight gain, no fever, no chills Ears, nose, mouth and throat: no sinus pressure, no sinus pain Cardiovascular: chest pain, no shortness of breath, no dyspnea on exertion Respiratory: pain on inspiration, no shortness of breath, no dyspnea on exertion Gastrointestinal: no abdominal pain, no nausea, no vomiting Musculoskeletal: no neck stiffness, no neck pain, no shooting arm pain Integumentary: no rash, no pruritis, no redness, no sores Neurological: no head injury, no transient paralysis Psychiatric: no anxiety, no memory loss Endocrine: no cold intolerance, no heat intolerance Hematologic/Lymphatic: no easy bruising, no easy bleeding Physical Examination Vital Signs Temp Pulse Resp BP Pulse Ox 98.4 F 80 18 121/80 98 08/21/22 10:29 04/10/22 10:29 04/10/22 10:29 04/10/22 10:29 04/10/22 10:29 General appearance: no acute distress HEENT: Positive: Normocephaly Neck: Positive: trachea midline Cardiac: Positive: Reg Rate and Rhythm Lungs: Positive: Decreased Breath Sounds Neuro: Positive: Grossly Intact Abdomen: Positive: Soft Skin: Negative: Rash, Suspicious Lesions, Ulceration Extremities: Present: upper extr. pulses. Absent: edema Results 04/12/22 10:03 04/12/22 10:03 CBC 04/12/22 Range/Units 10:03 WBC 7.3 (4.5-11.0) K/mm3 RBC 4.15 (3.65-5.03) M/mm3 Hgb 13.4 (11.8-15.2) gm/dl Hct 39.5 (35.5-45.6) % Plt Count 346 (140-440) K/mm3 Lymph # (Auto) 0.9 L (1.2-5.4) K/mm3 [place] # (Auto) 0.9 H (0.0-0.8) K/mm3 Eos # (Auto) 0.0 (0.0-0.4) K/mm3 Baso # (Auto) 0.1 (0.0-0.1) K/mm3 Comprehensive Metabolic Panel 04/12/22 Range/Units 10:03 Sodium 135 L (137-145) mmol/L Potassium 4.3 (3.6-5.0) mmol/L Chloride 97.6 L (98-107) mmol/L Carbon Dioxide 30 (22-30) mmol/L BUN 9 (9-20) mg/dL Creatinine 0.6 L (0.8-1.3) mg/dL Glucose 103 H (75-100) mg/dL Calcium 8.5 (8.4-10.2) mg/dL - Imaging and Cardiology Echo: pending, report reviewed EKG interpretations - Telemetry EKG Rhythm: Sinus Rhythm - EKG Sinus rhythms and dysrhythmias: sinus rhythm Assessment and Plan Patient is a 56-year-old male with a past medical history of HIV, hypertension, osteomyelitis who presented to the ED with a complaint of chest pain x2 weeks found to have bilateral septic pulmonary emboli on CTA chest Acute pulmonary emboli SIRS Hypertension HIV?-ID following, not on antiviral Tobacco abuse Echo 04/10/2022-EF 55 to 60%. Right ventricular systolic function is normal. No aortic regurgitation is present. No mitral valve regurgitation noted. No tricuspid valve regurgitation noted. Trace pulmonic regurgitation. Plan: EKG shows sinus rhythm 60 no acute ischemic changes. Troponins negative x1 BNP noted to be negative, patient denies any complaints of shortness of breath, and patient has normal echo patient is not clinically heart failure Patient currently anticoagulated on heparin drip We will plan for LUNA in the a.m. Patient to be n.p.o. after midnight Plan of care discussed with patient who verbalized understanding and acknowledgment Patient seen in conjunction with Dr. Haddad who agrees with plan of care - Patient Problems (1) Acute pulmonary embolism Current Visit: Yes Status: Acute Qualifiers: Pulmonary embolism type: septic (2) SIRS (systemic inflammatory response syndrome) Current Visit: Yes Status: Acute (3) Septic pulmonary embolism Current Visit: Yes Status: Acute Qualifiers: Chronicity: acute Acute cor pulmonale presence: without acute cor pulmonale Qualified Code(s): I26.90 - Septic pulmonary embolism without acute cor pulm onale (4) HIV disease Current Visit: Yes Status: Chronic (5) Hypertension Current Visit: Yes Status: Chronic Qualifiers: Hypertension type: primary hypertension Qualified Code(s): I10 - Essential (primary) hypertension
[2022-04-12] MEDS: VANCOMYCIN/NS 1 GM/250 ML 1 GM/250 ML BAG IV SCH ×2 (12:38→23:28)
--- NOTE | 2022-04-12 13:53 | Electrocardiograph Report ---
[facility] Test Date: 2022-04-10 Test Time: 13:48:15 Pat Name: CHRISTINE FAUSTIN Department: Room: A476 Gender: M [employer]: [place]ETT : 1965 Requested By: YARA METCALF Order Number: [id number] Reading MD: Priscila Fulton Measurements Intervals Avis Rate: 61 P: 84 DC: 126 QRS: 85 QRSD: 88 T: 69 QT: 406 QTc: 411 Interpretive Statements Sinus rhythm Probable left atrial enlargement No previous ECG available for comparison Electronically Signed On 04-12-2022 13:53:22 EDT by Priscila Fulton
--- NOTE | 2022-04-12 14:44 | Progress Note ---
Assessment and Plan Assessment and plan: #Acute pulmonary emboli #suspected septic emboli #SIRS (systemic inflammatory response syndrome) without organ dysfunction -septic emboli seen on CT of the chest -TTE noted, no vegetations, clots seen; pending LUNA tomorrow with Cardiology. Cardiology consulted; appreciate recs. -will continue vancomycin, cefepime, and heparin drip -ID consulted ordered, assistance appreciated #Elevated D-dimer -likely secondary to PEs #Hypertension -History of hypertension, does not take medications at home -will continue to monitor to see if antihypertensives may be needed prior to discharge -goal SBP <160 while inpatient #HIV disease -Not on any antiretrovirals -will need ID follow up outpatient #Tobacco abuse #Smoking cessation -patient smokes about 4 cigarettes per day -Smoking cessation counseling, supportive care, behavior change counseling, +15 minutes. -Patient declines nicotine patch at this time #Moderate protein malnutrition -albumin 2.9 -nutrition consult #Advanced care planning -Disease education conducted, care plan discussed, diagnosis discussed and prognosis discussed. Patient acknowledged understanding with care plan. +30 minutes. Disposition Plan: Continue medical management Total Time Spent with Patient (Minutes): 45 min History Interval history: No acute events overnight. Hospitalist Physical - Constitutional Vitals: Temp Pulse Resp BP Pulse Ox 98.4 F 60 18 136/83 98 04/12/22 11:30 04/12/22 11:30 04/12/22 11:30 04/12/22 11:30 04/12/22 11:30 General appearance: Present: no acute distress, well-nourished - EENT Eyes: Present: PERRL, EOM intact ENT: hearing intact, clear oral mucosa, dentition normal - Neck Neck: Present: supple, normal ROM - Respiratory Respiratory effort: normal Respiratory: bilateral: CTA - Cardiovascular Rhythm: regular Heart Sounds: Present: S1 & S2 - Extremities Extremities: no ischemia, pulses intact, pulses symmetrical, No edema, normal temperature, normal color, Full ROM Peripheral Pulses: within normal limits - Abdominal General gastrointestinal: soft, non-tender, non-distended, normal bowel sounds - Integumentary Integumentary: Present: clear, warm, dry - Psychiatric Psychiatric: appropriate mood/affect, intact judgment & insight, memory intact, cooperative - Neurologic Neurologic: CNII-XII intact, moves all extremities - Allied Health Allied health notes reviewed: nursing HEART Score - HEART Score Age: 45-65 Risk factors: 1-2 risk factors Troponin: Troponin T < 0.010 ng/mL (0.00-0.029) 04/10/22 14:06 Troponin: < normal limit - Critical Actions Critical Actions: 0-3 pts:0.9-1.7%risk of adverse cardiac event.Candidate for discharge Results - Labs CBC & Chem 7: 04/12/22 10:03 04/12/22 10:03 Labs: Laboratory Last Values WBC 7.3 K/mm3 (4.5-11.0) 04/12/22 10:03 RBC 4.15 M/mm3 (3.65-5.03) 04/12/22 10:03 Hgb 13.4 gm/dl (11.8-15.2) 04/12/22 10:03 Hct 39.5 % (35.5-45.6) 04/12/22 10:03 MCV 95 fl (84-94) H 04/12/22 10:03 MCH 32 pg (28-32) 04/12/22 10:03 MCHC 34 % (32-34) 04/12/22 10:03 RDW 12.9 % (13.2-15.2) L 04/12/22 10:03 Plt Count 346 K/mm3 (140-440) 04/12/22 10:03 Lymph % (Auto) 12.4 % (13.4-35.0) L 04/12/22 10:03 [place] % (Auto) 12.2 % (0.0-7.3) H 04/12/22 10:03 Eos % (Auto) 0.2 % (0.0-4.3) 04/12/22 10:03 Baso % (Auto) 1.5 % (0.0-1.8) 04/12/22 10:03 Lymph # (Auto) 0.9 K/mm3 (1.2-5.4) L 04/12/22 10:03 [place] # (Auto) 0.9 K/mm3 (0.0-0.8) H 04/12/22 10:03 Eos # (Auto) 0.0 K/mm3 (0.0-0.4) 04/12/22 10:03 Baso # (Auto) 0.1 K/mm3 (0.0-0.1) 04/12/22 10:03 Seg Neutrophils % 73.7 % (40.0-70.0) H 04/12/22 10:03 Seg Neutrophils # 5.4 K/mm3 (1.8-7.7) 04/12/22 10:03 PT 13.2 Sec. (12.2-14.9) 04/10/22 14:06 INR 0.91 (0.87-1.13) 04/10/22 14:06 APTT 49.8 Sec. (24.2-36.6) H 04/10/22 14:06 D-Dimer 1147.05 ng/mlDDU (0-234) H 04/10/22 14:06 Heparin Anti-Xa Level 0.34 U.I./ml (0.3-0.7) 04/12/22 10:03 Sodium 135 mmol/L (137-145) L 04/12/22 10:03 Potassium 4.3 mmol/L (3.6-5.0) 04/12/22 10:03 Chloride 97.6 mmol/L (98-107) L 04/12/22 10:03 Carbon Dioxide 30 mmol/L (22-30) 04/12/22 10:03 Anion Gap 12 mmol/L 04/12/22 10:03 BUN 9 mg/dL (9-20) 04/12/22 10:03 Creatinine 0.6 mg/dL (0.8-1.3) L 04/12/22 10:03 Estimated GFR > 60 ml/min 04/12/22 10:03 BUN/Creatinine Ratio 15 % 04/12/22 10:03 Glucose 103 mg/dL (75-100) H 04/12/22 10:03 POC Glucose 146 mg/dL (70-105) H 04/11/22 05:12 Calcium 8.5 mg/dL (8.4-10.2) 04/12/22 10:03 Total Bilirubin 0.80 mg/dL (0.1-1.2) 04/11/22 06:13 AST 26 units/L (5-40) 04/11/22 06:13 ALT 17 units/L (7-56) 04/11/22 06:13 Alkaline Phosphatase 112 units/L (35-129) 04/11/22 06:13 Troponin T < 0.010 ng/mL (0.00-0.029) 04/10/22 14:06 NT-Pro-B Natriuret Pep 160.6 pg/mL (0-900) 04/10/22 14:06 Total Protein 7.4 g/dL (6.3-8.2) 04/11/22 06:13 Albumin 2.9 g/dL (3.9-5) L 04/11/22 06:13 Albumin/Globulin Ratio 0.6 % 04/11/22 06:13 Amylase 47 units/L (27-131) 04/10/22 Unknown Lipase 16 units/L (13-60) 04/10/22 11:09 Urine Color Yellow (Yellow) 04/10/22 15:29 Urine Turbidity Slightly cloudy (Clear) 04/10/22 15:29 Specific [place] (Man) 1.010 (1.003-1.030) 04/10/22 15:29 Ur Protein (Man) 1+ mg/dL (Negative) 04/10/22 15:29 Ur Ketones (Man) Negative (Negative) 04/10/22 15:29 Urine Bilirubin (Man) Negative (Negative) 04/10/22 15:29 Urine WBC (Auto) 2.0 /HPF (0.0-6.0) 04/10/22 15:29 Urine RBC (Auto) 1.0 /HPF (0.0-6.0) 04/10/22 15:29 Urine RBC (Manual) Negative (Negative) 04/10/22 15:29 Urine Mucus Few /HPF 04/10/22 15:29 Microbiology: Microbiology 04/11/22 08:08 Peripheral/Venous Blood Culture - Preliminary NO GROWTH AFTER 24 HOURS 04/11/22 08:08 Peripheral/Venous Blood Culture - Preliminary NO GROWTH AFTER 24 HOURS Jeong/IV: Voiding Method Toilet Active Medications - Current Medications Current Medications: Generic Name Dose Route Start Last Admin Trade Name Freq PRN Reason Stop Dose Admin Acetaminophen 650 mg 04/10/22 21:52 Acetaminophen 325 Mg Tab PO Q4H PRN Pain MILD(1-3)/Fever >100.5/MORRIS Famotidine 20 mg 04/10/22 22:00 04/12/22 09:07 Famotidine 20 Mg/2 Ml Inj IV 20 mg BID NIRU Administration Heparin Sodium (Porcine) 2,700 unit 04/10/22 22:05 04/12/22 00:39 Heparin 10,000 Units/10 Ml Vial 40 unit/kg (2700 unit) 2,700 unit IV Administration Q6H PRN Anti-Xa Assay < 0.1 units/ml Hydromorphone HCl 0.5 mg 04/10/22 21:52 Hydromorphone 0.5 Mg/0.5 Ml Inj IV Q3H PRN Pain , Severe (7-10) Sodium Chloride 1,000 mls @ 75 mls/hr 04/10/22 22:00 04/11/22 21:19 Nacl 0.9% 1000 Ml IV 75 mls/hr DIRECT NIRU Administration Cefepime HCl 2 gm in 100 mls @ 200 mls/hr 04/10/22 23:00 04/12/22 05:17 Cefepime/Ns 2 Gm/100 Ml IV 200 mls/hr Q8HR NIRU Administration Protocol Heparin Sodium/Sodium Chloride 25,000 unit in 500 mls @ 20 mls/hr 04/10/22 23:00 04/12/22 11:22 Heparin/ 0.45% Nacl-25,000 Unit/500 Ml IV 1,300 units/hr TITR NIRU 26 mls/hr Titration Protocol 1,000 UNITS/HR Vancomycin HCl 1 gm in 250 mls @ 250 mls/hr 04/11/22 12:00 04/12/22 12:38 Vancomycin/Ns 1 Gm/250 Ml IV 250 mls/hr Q12H NIRU Administration Metoclopramide HCl 10 mg 04/10/22 21:52 Metoclopramide 10 Mg/2 Ml Inj IV Q6H PRN Nausea And Vomiting Morphine Sulfate 2 mg 04/10/22 21:52 04/12/22 13:07 Morphine 2 Mg/1 Ml Inj IV 2 mg Q4H PRN Administration Pain, Moderate (4-6) Ondansetron HCl 4 mg 04/10/22 21:52 Ondansetron 4 Mg/2 Ml Inj IV Q8H PRN Nausea And Vomiting Sodium Chloride 10 ml 04/10/22 22:00 04/12/22 09:07 Sodium Chloride 0.9% 10 Ml Flush Syringe IV 10 ml BID NIRU Administration Sodium Chloride 10 ml 04/10/22 21:52 Sodium Chloride 0.9% 10 Ml Flush Syringe IV PRN PRN LINE FLUSH
--- NOTE | 2022-04-12 17:03 | Progress Note ---
Assessment and Plan Cultures: Blood culture no growth so far A/P: 56-year-old man past medical history hypertension, HIV now with: #Septic pulmonary emboli: No evidence of endocarditis on TTE. Blood cultures negative, does not relate any history of recent febrile illnesses. Possible culture-negative endocarditis. #HIV: Not on ART Recs: -Continue vancomycin, cefepime for now -Follow blood cultures -Recommend LUNA given reported history of septic emboli -For his HIV he will have to establish care with [facility] or [facility] for free care. Thank you for the consult, we will continue to follow. Juliann Duong MD [facility] ([facility]) O: [phone] F: [phone] Subjective Date of service: 04/12/22 Interval history: Afebrile, normal white count. Objective - Exam Narrative Exam: Physical Exam: Constitutional: Alert, cooperative. No acute distress Head, Ears, Nose: Normocephalic, atraumatic. External ears, nose normal Eyes: Conjunctivae/corneas clear. No icterus. No ptosis. Neck: Supple, no meningeal signs Oral: dentition fair, no thrush Cardiovascular: S1, S2 normal. Respiratory: Good air entry, clear to auscultation bilaterally GI: Soft, non-tender; bowel sounds normal. No peritoneal signs. Musculoskeletal: No pedal edema, no cyanosis. Skin: No rash or abscess Hem/Lymphatic: No palpable cervical or supraclavicular nodes. No lymphangitis Psych: Mood ok. Affect normal Neurological: Awake, alert, oriented. No gross abnormality - Constitutional Vitals: Vital Signs Temp Pulse Resp BP Pulse Ox 98.4 F 60 18 136/83 98 04/12/22 11:30 04/12/22 11:30 04/12/22 11:30 04/12/22 11:30 04/12/22 11:30 Temperature -Last 24 Hours Temperature 98.4 F Temperature 98.7 F Temperature 97.8 F Temperature 98.3 F Temperature 98.1 F - Labs CBC & Chem 7: 04/12/22 10:03 04/12/22 10:03 Labs: Abnormal lab results 04/11/22 04/12/22 04/12/22 Range/Units 22:54 10:03 10:03 MCV 95 H (84-94) fl RDW 12.9 L (13.2-15.2) % Lymph % (Auto) 12.4 L (13.4-35.0) % [place] % (Auto) 12.2 H (0.0-7.3) % Lymph # (Auto) 0.9 L (1.2-5.4) K/mm3 [place] # (Auto) 0.9 H (0.0-0.8) K/mm3 Seg Neutrophils % 73.7 H (40.0-70.0) % Heparin Anti-Xa Level < 0.10 L (0.3-0.7) U.I./ml Sodium 135 L (137-145) mmol/L Chloride 97.6 L (98-107) mmol/L Creatinine 0.6 L (0.8-1.3) mg/dL Glucose 103 H (75-100) mg/dL
[2022-04-12] MEDS: SODIUM CHLORIDE 0.9% 1000 ML 1,000 ML IV SCH (17:18)
[2022-04-13 05:53] LABS: Basophils # (Auto) 0.1 K/mm3 (0.0-0.1); Basophils % (Auto) 0.8 % (0.0-1.8); Eosinophils # (Auto) 0.1 K/mm3 (0.0-0.4); Hematocrit 38.4 % (35.5-45.6); Lymphocytes # (Auto) 1.1 K/mm3 (1.2-5.4); Lymphocytes % (Auto) 16.9 % (13.4-35.0); Mean Corpuscular HGB Conc 34 % (32-34); Mean Corpuscular Volume 95 fl (84-94); Monocytes # (Auto) 1.1 K/mm3 (0.0-0.8); Monocytes % (Auto) 15.5 % (0.0-7.3); Platelet Count 321 K/mm3 (140-440); Red Blood Count 4.06 M/mm3 (3.65-5.03); Red Cell Distribution Width 12.8 % (13.2-15.2)
[2022-04-13 06:14] LABS: Blood Urea Nitrogen 9 mg/dL (9-20); Calcium 8.3 mg/dL (8.4-10.2); Hemolysis Index 28
[2022-04-13 06:16] LABS: BUN/Creatinine Ratio 15
[2022-04-13] MEDS: CEFEPIME/NS 2 GM/100 ML 2 GM/100 ML BAG IV SCH ×2 (06:22→14:00)
[2022-04-13] MEDS ORDERED: BENZOCAINE 20% TOP SPRAY 0.5 ML UNIT DOSE MM NR (09:00)
[2022-04-13] MEDS ORDERED: propofoL 200 MG/20 ML VIAL IV ONE (09:32)
--- NOTE | 2022-04-13 09:41 | Anesthesia Consultation ---
Anesthesia Consult and Med Hx Date of service: 04/13/22 - Airway Anesthetic Teeth Evaluation: Poor (multiple missing, broken, careous teeth, #9 is loose) ROM Head & Neck: Adequate Mental/Hyoid Distance: Adequate Intubation Access Assessment: Probably Good - Pre-Operative Health Status ASA Pre-Surgery Classification: ASA3 Proposed Anesthetic Plan: MAC - Pulmonary Hx Smoking: Yes (1/4 pack/day) Hx Asthma: No Hx Respiratory Symptoms: Yes COPD: No Hx Pneumonia: Yes (PE pneumonia) - Cardiovascular System Hx Hypertension: Yes (no meds) - Central Nervous System Hx Back Pain: Yes ( in the hip) - Endocrine Hx End Stage Renal Disease: No - Other Systems Hx Substance Use: Yes (marijuana few times/week) - Additional Comments Anesthesia Medical History Comments: HIV
--- NOTE | 2022-04-13 09:43 | Anesthesia Day of Surgery ---
Anesthesia Day of Surgery - Day of Surgery Patient Examined: Yes Patient H&P Reviewed: Yes Patient is NPO: Yes
[2022-04-13] MEDS: FAMOTIDINE 20 MG/2 ML INJ IV SCH (11:08)
[2022-04-13] MEDS: MORPHINE 2 MG/1 ML INJ IV PRN (11:12)
--- NOTE | 2022-04-13 12:24 | Progress Note ---
Assessment and Plan Patient is a 56-year-old male with a past medical history of HIV, hypertension, osteomyelitis who presented to the ED with a complaint of chest pain x2 weeks found to have bilateral septic pulmonary emboli on CTA chest Acute pulmonary emboli SIRS Hypertension HIV?-ID following, not on antiviral Tobacco abuse Echo 04/10/2022-EF 55 to 60%. Right ventricular systolic function is normal. No aortic regurgitation is present. No mitral valve regurgitation noted. No tricuspid valve regurgitation noted. Trace pulmonic regurgitation. Transesophageal echocardiogram 04/13/2022-EF 55 to 60%. No masses or thrombus suspected in left atrium. No clot in IAM and normal velocity and saline bubble contrast study does not demonstrate PFO. Mitral valve is normal in structure. Thickened chordae with no evidence of mitral valve vegetations. Plan: LUNA this a.m. did not demonstrate any masses or thrombus Patient currently anticoagulated on heparin. Recommend switching patient to Eliquis for anticoagulation Plan of care discussed with patient who verbalized understanding and acknowledgment Cardiac status otherwise stable. Will see as needed Patient has a follow-up appointment with Dr. Haddad, [facility] warehouse specialist, on 04/27/2022 at 3:15 PM in our [place] location . Phone #[phone] Patient seen in conjunction with Dr. Haddad who agrees with plan of care - Patient Problems (1) Acute pulmonary embolism Current Visit: Yes Status: Acute Qualifiers: Pulmonary embolism type: septic (2) SIRS (systemic inflammatory response syndrome) Current Visit: Yes Status: Acute (3) Septic pulmonary embolism Current Visit: Yes Status: Acute Qualifiers: Chronicity: acute Acute cor pulmonale presence: without acute cor pulmonale Qualified Code(s): I26.90 - Septic pulmonary embolism without acute cor pulmonale (4) HIV disease Current Visit: Yes Status: Chronic (5) Hypertension Current Visit: Yes Status: Chronic Qualifiers: Hypertension type: primary hypertension Qualified Code(s): I10 - Essential (primary) hypertension Subjective Date of service: 04/13/22 Principal diagnosis: Pulmonary emboli Interval history: Patient for LUNA this a.m. Sinus 50s 60s on monitor Objective Vital Signs Temp Pulse Pulse Pulse Resp Resp Resp 04/13/22 11:00 52 L 19 04/13/22 10:46 54 L 20 04/13/22 10:33 56 L 20 04/13/22 10:18 58 L 20 04/13/22 09:35 53 L 20 04/13/22 08:03 97.8 F 61 18 04/13/22 06:00 60 04/13/22 03:33 97.9 F 48 L 12 04/12/22 23:11 98.2 F 57 L 12 04/12/22 22:00 67 04/12/22 20:00 04/12/22 19:28 98.4 F 61 16 04/12/22 17:00 98.0 F 55 L 18 BP BP BP Pulse Ox Pulse Ox 04/13/22 11:00 145/83 04/13/22 10:46 124/78 04/13/22 10:33 123/78 04/13/22 10:18 118/75 04/13/22 09:35 139/80 100 04/13/22 08:03 149/88 98 04/13/22 06:00 04/13/22 03:33 151/85 100 04/12/22 23:11 139/79 100 04/12/22 22:00 04/12/22 20:00 98 04/12/22 19:28 125/73 100 04/12/22 17:00 141/84 98 - Physical Examination General: No Apparent Distress HEENT: Positive: Normocephaly Neck: Positive: trachea midline Cardiac: Positive: Reg Rate and Rhythm Lungs: Positive: Normal Breath Sounds Neuro: Positive: Grossly Intact Abdomen: Positive: Soft Skin: Negative: Rash, Suspicious Lesions, Ulceration Extremities: Present: upper extr. pulses. Absent: edema - Labs and Meds CBC 04/13/22 Range/Units 05:10 WBC 6.8 (4.5-11.0) K/mm3 RBC 4.06 (3.65-5.03) M/mm3 Hgb 13.0 (11.8-15.2) gm/dl Hct 38.4 (35.5-45.6) % Plt Count 321 (140-440) K/mm3 Lymph # (Auto) 1.1 L (1.2-5.4) K/mm3 [place] # (Auto) 1.1 H (0.0-0.8) K/mm3 Eos # (Auto) 0.1 (0.0-0.4) K/mm3 Baso # (Auto) 0.1 (0.0-0.1) K/mm3 Comprehensive Metabolic Panel 04/13/22 Range/Units 05:10 Sodium 136 L (137-145) mmol/L Potassium 4.3 (3.6-5.0) mmol/L Chloride 102.1 (98-107) mmol/L Carbon Dioxide 24 (22-30) mmol/L BUN 9 (9-20) mg/dL Creatinine 0.6 L (0.8-1.3) mg/dL Glucose 89 (75-100) mg/dL Calcium 8.3 L (8.4-10.2) mg/dL - Imaging and Cardiology EKG: report reviewed (Sinus rhythm no acute ST-T wave changes) Echo: report reviewed LUNA: report reviewed - Telemetry EKG Rhythm: Sinus Rhythm - EKG Sinus rhythms and dysrhythmias: sinus rhythm
[2022-04-13 13:02] VITALS: BP 140/84
--- NOTE | 2022-04-13 13:27 | Discharge Summary ---
Providers - Providers Date of Admission: 04/10/22 21:53 Date of discharge: 04/13/22 Attending physician: ZACH MOSER MD 04/10/22 22:18 Consult to Physician [CONS] Routine Comment: Consulting Provider: CUAUHTEMOC WAGGONER Physician Instructions: Reason For Exam: Septic emboli 04/12/22 08:07 Consult to Physician [CONS] Routine Comment: Consulting Provider: KAUSHAL BREEN Physician Instructions: Reason For Exam: Concern for septic emboli- requesting LUNA Primary care physician: RADHA LANDEROS Hospitalization Reason for admission: Acute pulmonary emboli, SIRS without organ dysfunction Condition: Stable Pertinent studies: Reviewed. Procedures: Transesophageal echocardiogram Hospital course: The patient is a 56-year-old male past medical history of hypertension, prior median sternotomy, HIV (not currently on antiretrovirals), and tobacco dependence who presented to the ED with complaints of left upper quadrant abdominal pain that had started the night prior and progressively getting worse. The pain was pleuritic in nature and worsened upon inspiration. Patient described having the same pain approximately 1 week ago but also endorsed having heavy alcohol consumption at that point in time. The patient was hemodynami arnold stable on presentation with relatively unremarkable labs. Patient's chest x-ray was unremarkable. He underwent CT angio chest revealing bilateral septic pulmonary emboli the patient was started on heparin drip, and cardiology was consulted in addition to infectious disease. TTE (04/11/2022) revealed EF 55-60% with normal-sized LV, normal LV systolic function, normal LV segmental wall motion, normal RV, normal RV systolic function, normal LA, unremarkable for aortic valvular stenosis or regurgitation, unremarkable mitral valve in structure and function, and unremarkable tricuspid and pulmonic valves. No pericardial effusion was visualized. Patient underwent LUNA to rule out septic emboli, and it was found to be unremarkable. Patient also did not demonstrate PFO. Patient is being transitioned from heparin drip to Eliquis. The patient will take Eliquis 10 mg twice daily x1 week, afterwards he will transition to Eliquis 5 mg twice daily for 3-6 months. Patient will be connected with a [facility] or the [facility] on [place] daily on for further management of his HIV. Patient is medically clear for discharge. The patient will follow up with Dr. Haddad on 04/27/2022 at 3:15 PM in the [place] location. Disposition: 01 HOME / SELF CARE / HOMELESS Final Discharge Diagnosis (Prints w/discharge instructions): Acute pulmonary emboli, SIRS without organ dysfunction, elevated D-dimer, hypertension, HIV, tobacco dependence, moderate protein caloric malnutrition Time spent for discharge: 45 min Core Measure Documentation - Palliative Care Palliative Care/ Comfort Measures: Not Applicable - Core Measures Any of the following diagnoses?: DVT/PE - VTE Discharge Requirements Deep Vein Thrombosis/Pulmonary Embolism Present on Admission: Yes Has pt received <5 days of overlap therapy or INR<2.0: No Anticoagulant overlap therapy prescribed at discharge: Yes Exam - Constitutional Vitals: Temp Pulse Resp BP Pulse Ox 98.0 F 58 L 18 140/84 97 04/13/22 11:32 04/13/22 12:00 04/13/22 11:32 04/13/22 11:32 04/13/22 12:00 General appearance: Present: no acute distress, well-nourished, obese - EENT Eyes: Present: PERRL, EOM intact ENT: hearing intact, clear oral mucosa, dentition normal - Neck Neck: Present: supple, normal ROM - Respiratory Respiratory effort: normal, other (Pleuritic chest pain on inspiration) Respiratory: bilateral: CTA - Cardiovascular Rhythm: regular Heart Sounds: Present: S1 & S2 - Extremities Extremities: no ischemia, pulses intact, pulses symmetrical, No edema, normal temperature, normal color, Full ROM Peripheral Pulses: within normal limits - Abdominal General gastrointestinal: Present: soft, non-tender, non-distended, normal bowel sounds Male genitourinary: Present: deferred - Rectal Rectal Exam: deferred - Integumentary Integumentary: Present: clear, warm, dry - Musculoskeletal Musculoskeletal: strength equal bilaterally - Psychiatric Psychiatric: appropriate mood/affect, intact judgment & insight, memory intact, cooperative - Neurologic Neurologic: CNII-XII intact, moves all extremities - Allied Health Allied health notes reviewed: nursing, case management Plan Activity: advance as tolerated Diet: low salt Additional Instructions: The patient is a 56-year-old male past medical history of hypertension, prior median sternotomy, HIV (not currently on antiretrovirals), and tobacco dependence who presented to the ED with complaints of left upper quadrant abdominal pain that had started the night prior and progressively getting worse. The pain was pleuritic in nature and worsened upon inspiration. Patient described having the same pain approximately 1 week ago but also endorsed having heavy alcohol consumption at that point in time. The patient was hemodynamically stable on presentation with relatively unremarkable labs. Patient's chest x-ray was unremarkable. He underwent CT angio chest revealing bilateral septic pulmonary emboli the patient was started on heparin drip, and cardiology was consulted in addition to infectious disease. TTE (04/11/2022) revealed EF 55-60% with normal-sized LV, normal LV systolic function, normal LV segmental wall motion, normal RV, normal RV systolic function, normal LA, unremarkable for aortic valvular stenosis or regurgitation, unremarkable mitral valve in structure and function, and unremarkable tricuspid and pulmonic valves. No pericardial effusion was visualized. Patient underwent LUNA to rule out septic emboli, and it was found to be unremarkable. Patient also did not demonstrate PFO. Patient is being transitioned from heparin drip to Eliquis. The patient will take Eliquis 10 mg twice daily x1 week, afterwards he will transition to Eliquis 5 mg twice daily for 3-6 months. Patient will be connected with a [facility] or the [facility] on [place] daily on for further management of his HIV. Patient is medically clear for discharge. The patient will follow up with Dr. Haddad on 04/27/2022 at 3:15 PM in the [place] location. Care Plan Goals: Patient is medically clear for discharge. Assessment: The patient is a 56-year-old male past medical history of hypertension, prior median sternotomy, HIV (not currently on antiretrovirals), and tobacco dependence who presented to the ED with complaints of left upper quadrant abdominal pain that had started the night prior and progressively getting worse. The pain was pleuritic in nature and worsened upon inspiration. Patient described having the same pain approximately 1 week ago but also endorsed having heavy alcohol consumption at that point in time. The patient was hemodynamically stable on presentation with relatively unremarkable labs. Patient's chest x-ray was unremarkable. He underwent CT angio chest revealing bilateral septic pulmonary emboli the patient was started on heparin drip, and cardiology was consulted in addition to infectious disease. TTE (04/11/2022) revealed EF 55-60% with normal-sized LV, normal LV systolic function, normal LV segmental wall motion, normal RV, normal RV systolic function, normal LA, unr emarkable for aortic valvular stenosis or regurgitation, unremarkable mitral valve in structure and function, and unremarkable tricuspid and pulmonic valves. No pericardial effusion was visualized. Patient underwent LUNA to rule out septic emboli, and it was found to be unremarkable. Patient also did not demonstrate PFO. Patient is being transitioned from heparin drip to Eliquis. The patient will take Eliquis 10 mg twice daily x1 week, afterwards he will transition to Eliquis 5 mg twice daily for 3-6 months. Patient will be connected with a [facility] or the [facility] on [place] daily on for further management of his HIV. Patient is medically clear for discharge. The patient will follow up with Dr. aHddad on 04/27/2022 at 3:15 PM in the [place] location. Follow up with: RADHA LANDEROS MD [Primary Care Provider] - 7 Days LISA HADDAD MD [Staff Physician] - 04/27/22 3:15 pm Forms: Work/School Release Form
[2022-04-13] MEDS ORDERED: VANCOMYCIN 1,500 MG in SODIUM CHLORIDE 0.9% 500 ML 500 ML IV SCH (14:00)
[2022-04-13] MEDS: VANCOMYCIN/NS 1 GM/250 ML 1 GM/250 ML BAG IV SCH (15:50)
== END 2022-04-13 16:52 | disposition home or self-care (01) | DRG 176 ==
LOC: ED 10:20 → 4A 21:53
PROVIDERS: ADMIT Internal Medicine; ATTEND Student in an Organized Health Care Education/Training Program
DX: I26.90 Septic pulmonary embolism without acute cor pulmonale (principal); R65.10 Systemic inflammatory response syndrome (SIRS) of non-infectious origin without acute organ dysfunction; E44.0 Moderate protein-calorie malnutrition; Z68.21 Body mass index [BMI] 21.0-21.9, adult; Z88.8 Allergy status to other drugs, medicaments and biological substances; I10 Essential (primary) hypertension; Z82.49 Family history of ischemic heart disease and other diseases of the circulatory system; Z71.6 Tobacco abuse counseling; Z21 Asymptomatic human immunodeficiency virus [HIV] infection status
CPT/HCPCS: 36415; 71045; 71275; 74177; 80048; 80053; 80202; 81001; 82150; 82962; 83690; 83880; 84484; 85025; 85379; 85520; 85610; 85730; 87040; 93005; 93306; 93312; 93320; 93325; 99285; 99406; G0378; J3490; C8929; C9113; J0692; J1170; J1644; J2270; J2405; J2704; J3370; J7030; J7040; Q9967